=== PATIENT | female | born 1965 | race Caucasian/White ===

== ENCOUNTER → 2018-03-27 | Outpatient (CLI) | payer OTHER ==
[~2018-03-27] VITALS: Ht 165.1 cm; Wt 79.4 kg
[~2018-03-27] MED LIST: MOBIC15 MG PO; NEURONTIN 300300 M1 PO; NORCO 7.5-3251 EACH PO; SYNTHROID112 MC1 PO; TRAZODONE HCL100 MG PO; VITAMIN D2000 UNIT PO
[2018-03-27 10:59] VITALS: BP 155/84
== END ==
LOC: PAIN 08:47
DX: G62.9 Polyneuropathy, unspecified (principal); Z79.899 Other long term (current) drug therapy